=== PATIENT | male | born 1965 | race Two or more races ===

== ENCOUNTER 2016-11-08 08:12 | Emergency (ER) | payer OTHER ==
[~2016-11-08] VITALS: Ht 157.5 cm; Wt 113.4 kg
[~2016-11-08 08:12] MED LIST: CARI-277; CYCL-181; HYDR-1421; IBUP800T24
[2016-11-08 11:02] VITALS: BP 121/69
== END 2016-11-08 11:04 | disposition home or self-care (01) ==
LOC: ER 08:23
DX: G89.29 Other chronic pain (principal); M54.5 Low back pain; Z76.0 Encounter for issue of repeat prescription